=== PATIENT | female | born 1995 | race Caucasian/White ===

== ENCOUNTER 2019-07-01 11:40 | Emergency (ER) | payer MEDICAID ==
[~2019-07-01] VITALS: Ht 167.6 cm; Wt 94.5 kg
[2019-07-01 11:58] VITALS: Ht 167.6 cm; Wt 94.5 kg
[2019-07-01 13:05] LABS: APPEARANCE SL CLDY (CLEAR); COLOR YELLOW (YELLOW)
[2019-07-01 13:06] LABS: BACTERIA MODERATE /hpf (NEGATIVE); BILIRUBIN NEGATIVE (NEGATIVE); GLUCOSE NEGATIVE (NEGATIVE); KETONE NEGATIVE (NEGATIVE); MUCUS <1+ /lpf (NONE SEEN); NITRITE NEGATIVE (NEGATIVE); PROTEIN NEGATIVE (NEGATIVE); RED CELLS - URINE 0-5 /hpf (0-5); SPECIFIC GRAVITY 1.015 (1.005-1.020); SPERMATOZOA RARE /hpf (NONE SEEN); UROBILINOGEN NORMAL (NORMAL); WHITE CELLS - URINE 0-5 /hpf (NEGATIVE)
[2019-07-01 13:30] VITALS: BP 119/52
[2019-07-01 13:42] LABS: BASOPHILS 0.3 % (0-2); EOSINOPHILS 2.2 % (0-7); HEMATOCRIT 37.5 % (36.0-48.0); HEMOGLOBIN 11.8 g/dL (12-16); IMMATURE GRANULOCYTES 0.3 % (0-5); LYMPHOCYTES 30.8 % (15-50); MCH 25.4 pg (26.0-34.0); MCHC 31.5 g/dL (31.0-37.0); MCV 80.6 fL (80.0-100.0); MONOCYTES 10.7 % (2-11); NEUTROPHILS 55.7 % (40-80); PLATELET COUNT 301 10x3/uL (130-400); RBC 4.65 10x6/uL (4.00-5.40); WBC 7.2 10x3/uL (4.8-10.8)
[2019-07-01] MEDS ORDERED: ZOFRAN ODT4 MG/UDTAB PO (13:56)
[2019-07-01] MEDS ORDERED: KEFLEX500 MG PO (13:56)
== END 2019-07-01 14:40 | disposition home or self-care (01) ==
LOC: D.ER 11:40
PROVIDERS: Emergency Medicine
DX: O45.91 Premature separation of placenta, unspecified, first trimester (principal); Z3A.08 8 weeks gestation of pregnancy; O23.41 Unspecified infection of urinary tract in pregnancy, first trimester

== ENCOUNTER 2019-07-15 22:45 | Emergency (ER) | payer MEDICAID ==
[~2019-07-15] VITALS: Ht 167.6 cm; Wt 90.9 kg
[~2019-07-15 22:45] MED LIST: KEFLEX500 MG PO; ZOFRAN ODT4 MG/UDTAB PO
[2019-07-15 22:59] VITALS: Ht 167.6 cm; Wt 90.9 kg
[2019-07-15 23:30] LABS: HCG URINE POSITIVE (NEGATIVE)
[2019-07-16 02:27] VITALS: BP 127/73
== END 2019-07-16 02:28 | disposition home or self-care (01) ==
LOC: D.ER 22:45
PROVIDERS: Family Medicine
DX: O20.9 Hemorrhage in early pregnancy, unspecified (principal); Z3A.08 8 weeks gestation of pregnancy

== ENCOUNTER → 2019-12-02 21:35 | Outpatient (CLI) | payer MEDICAID ==
[2019-07-15 22:59] VITALS: BMI 32.3
== END | disposition home or self-care (01) ==
LOC: D.LDO 21:35
PROVIDERS: ATTEND Obstetrics & Gynecology
DX: O36.8130 Decreased fetal movements, third trimester, not applicable or unspecified (principal); Z3A.28 28 weeks gestation of pregnancy

== ENCOUNTER → 2019-12-14 12:41 | Outpatient (CLI) | payer MEDICAID ==
[2019-07-15 22:59] VITALS: BMI 32.3
== END | disposition home or self-care (01) ==
LOC: D.LDO 12:41
PROVIDERS: ATTEND Obstetrics & Gynecology
DX: O36.8130 Decreased fetal movements, third trimester, not applicable or unspecified (principal); Z3A.30 30 weeks gestation of pregnancy

== ENCOUNTER 2019-12-21 13:20 | Outpatient (CLI) | payer MEDICAID ==
[2019-07-15 22:59] VITALS: BMI 32.3
== END 2019-12-21 13:41 | disposition home or self-care (01) ==
LOC: D.LDO 13:20
PROVIDERS: ATTEND Obstetrics & Gynecology
DX: O36.8120 Decreased fetal movements, second trimester, not applicable or unspecified (principal); Z3A.23 23 weeks gestation of pregnancy

== ENCOUNTER 2019-12-24 16:02 | Outpatient (CLI) | payer MEDICAID ==
[2019-07-15 22:59] VITALS: BMI 32.3
[2019-12-24 18:25] LABS: BILIRUBIN NEGATIVE (NEGATIVE); GLUCOSE NEGATIVE (NEGATIVE); KETONE MODERATE mg/dL (NEGATIVE); NITRITE NEGATIVE (NEGATIVE); SPECIFIC GRAVITY 1.015 (1.005-1.020); UROBILINOGEN NORMAL (NORMAL)
== END 2019-12-24 21:12 | disposition home or self-care (01) ==
LOC: D.LDO 16:02
PROVIDERS: Student in an Organized Health Care Education/Training Program; ATTEND Obstetrics & Gynecology
DX: O36.8130 Decreased fetal movements, third trimester, not applicable or unspecified (principal); Z3A.31 31 weeks gestation of pregnancy

== ENCOUNTER → 2020-01-18 18:33 | Outpatient (CLI) | payer MEDICAID ==
[2019-07-15 22:59] VITALS: BMI 32.3
[2020-01-18 19:41] LABS: BILIRUBIN NEGATIVE (NEGATIVE); GLUCOSE NEGATIVE (NEGATIVE); KETONE MODERATE mg/dL (NEGATIVE); NITRITE NEGATIVE (NEGATIVE); SPECIFIC GRAVITY 1.015 (1.005-1.020); UROBILINOGEN NORMAL (NORMAL)
[2020-01-18 19:42] LABS: BACTERIA MODERATE /hpf (NEGATIVE); EPITHELIAL CELLS 0-5 /hpf (0-5); RED CELLS - URINE OCC /hpf (0-5)
[2020-01-18 19:53] LABS: UDS - AMPHET NEGATIVE QUAL (NEGATIVE); UDS - BARB NEGATIVE QUAL (NEGATIVE); UDS - BENZO NEGATIVE QUAL (NEGATIVE); UDS - COCAINE NEGATIVE QUAL (NEGATIVE); UDS - OPIATE NEGATIVE QUAL (NEGATIVE); UDS - PCP NEGATIVE QUAL (NEGATIVE); UDS - THC NEGATIVE QUAL (NEGATIVE)
[2020-01-18 23:30] LABS: BILIRUBIN NEGATIVE (NEGATIVE); GLUCOSE NEGATIVE (NEGATIVE); KETONE NEGATIVE (NEGATIVE); NITRITE NEGATIVE (NEGATIVE); UROBILINOGEN NORMAL (NORMAL)
[2020-01-18 23:33] LABS: BACTERIA MODERATE /hpf (NEGATIVE); EPITHELIAL CELLS 0-5 /hpf (0-5); RED CELLS - URINE NONE SEEN /hpf (0-5); WHITE CELLS - URINE 0-5 /hpf (NEGATIVE)
== END | disposition home or self-care (01) ==
LOC: D.LDO 18:33
PROVIDERS: ATTEND Obstetrics & Gynecology
DX: O26.893 Other specified pregnancy related conditions, third trimester (principal); Z3A.35 35 weeks gestation of pregnancy; R10.9 Unspecified abdominal pain; M54.9 Dorsalgia, unspecified

== ENCOUNTER 2020-02-01 19:42 | Outpatient (CLI) | payer MEDICAID ==
[2019-07-15 22:59] VITALS: BMI 32.3
== END 2020-02-01 20:40 | disposition home or self-care (01) ==
LOC: D.LDO 19:42
PROVIDERS: ATTEND Student in an Organized Health Care Education/Training Program
DX: O26.899 Other specified pregnancy related conditions, unspecified trimester (principal); Z3A.00 Weeks of gestation of pregnancy not specified; R10.2 Pelvic and perineal pain

== ENCOUNTER 2020-02-04 21:18 | Outpatient (CLI) | payer MEDICAID ==
[2019-07-15 22:59] VITALS: BMI 32.3
[2020-02-04 22:34] LABS: BILIRUBIN NEGATIVE (NEGATIVE); GLUCOSE NEGATIVE (NEGATIVE); KETONE NEGATIVE (NEGATIVE); NITRITE NEGATIVE (NEGATIVE); UROBILINOGEN NORMAL (NORMAL)
[2020-02-04 22:40] LABS: BACTERIA MODERATE /hpf (NEGATIVE); RED CELLS - URINE 0-5 /hpf (0-5)
== END 2020-02-04 23:31 | disposition left against medical advice (07) ==
LOC: D.LDO 21:18
PROVIDERS: ATTEND Student in an Organized Health Care Education/Training Program
DX: O26.899 Other specified pregnancy related conditions, unspecified trimester (principal); Z3A.00 Weeks of gestation of pregnancy not specified; R10.9 Unspecified abdominal pain; M54.9 Dorsalgia, unspecified

== ENCOUNTER 2020-02-15 04:53 | Inpatient (IN) | payer MEDICAID ==
[~2020-02-15] VITALS: Ht 167.6 cm; Wt 110.5 kg
[2020-02-15 05:31] VITALS: BP 128/79; Ht 167.6 cm; Wt 110.5 kg
[2020-02-15 06:18] LABS: HEMATOCRIT 32.7 % (36.0-48.0); HEMOGLOBIN 10.2 g/dL (12-16); MCH 23.7 pg (26.0-34.0); MCHC 31.2 g/dL (31.0-37.0); MCV 75.9 fL (80.0-100.0); MEAN PLATELET VOLUME 9.6 fL (7.4-10.4); RBC 4.31 10x6/uL (4.00-5.40); RDW 14.7 % (11.5-14.5); WBC 10.3 10x3/uL (4.8-10.8)
[2020-02-15 06:27] LABS: UDS - AMPHET NEGATIVE QUAL (NEGATIVE); UDS - BARB NEGATIVE QUAL (NEGATIVE); UDS - BENZO NEGATIVE QUAL (NEGATIVE); UDS - COCAINE NEGATIVE QUAL (NEGATIVE); UDS - OPIATE NEGATIVE QUAL (NEGATIVE); UDS - PCP NEGATIVE QUAL (NEGATIVE); UDS - THC NEGATIVE QUAL (NEGATIVE)
[2020-02-15 19:17] VITALS: BP 130/80
--- NOTE | 2020-02-15 19:30 | NUR ---
VSS. PT PAIN 4/10 TO PERINEAL AREA, IBUPROFEN 600MG PO ADMINISTERED, TUCKS PADS AND DERMAPLAST PROVIDED PER MD ORDERS. FUNDUS IS FIRM, MIDLINE, 2 BELOW, SCANT RUBRA LOCHIA NOTED NO CLOTS SEEN. BED IN LOWEST POSITION, CALL LIGHT IN REACH, SIDE RAILS UP X2.
--- NOTE | 2020-02-15 21:14 | NUR ---
RN TO PT BEDSIDE, PT REQUESTS IV BE REMOVED. RN ADVISED PT THAT IF SHE NEEDED TO HAVE AN IV IN FOR ANY REASON THE IV WOULD HAVE TO BE RESTARTED, PT AGREES. IV REMOVED A THIS TIME, 4X4 AND BANDAIDE APPLIED TO AREA.
--- NOTE | 2020-02-15 22:38 | NUR ---
RN TO PT BEDSIDE, PT SLEEPING AT THIS TIME.
--- NOTE | 2020-02-16 00:29 | NUR ---
RN TO PT ROOM AT 0027, PT SLEEPING AT THIS TIME, TAKEN TO NURSERY FOR MIDNIGHT ASSESSMENTS. NO NEEDS AT THIS TIME.
--- NOTE | 2020-02-16 01:28 | NUR ---
RN TO PT BEDSIDE FOR ROUNDING, AMBIEN 10MG PO, NORCO PO, AND IBUPROFEN 600MG PO GIVEN FOR A PAIN OF 6/10 TO PERINEUM.
--- NOTE | 2020-02-16 03:16 | NUR ---
RN TO PT BEDSIDE AT THIS TIME, PT IS SLEEPING AT THIS TIME, IN CRIB AT BEDSIDE, FOB AT BEDSIDE.
[2020-02-16 04:11] VITALS: BP 109/61
[2020-02-16 06:10] LABS: RAPID PLASMA REAGIN Non Reactive (Non Reactive)
[2020-02-16 07:09] LABS: HEMATOCRIT 26.4 % (36.0-48.0); MCH 23.4 pg (26.0-34.0); MCHC 30.3 g/dL (31.0-37.0); MCV 77.2 fL (80.0-100.0); MEAN PLATELET VOLUME 9.7 fL (7.4-10.4); RDW 15.8 % (11.5-14.5); WBC 11.7 10x3/uL (4.8-10.8)
[2020-02-16 07:16] LABS: PLATELET COUNT 234 10x3/uL (130-400); RBC 3.42 10x6/uL (4.00-5.40)
--- NOTE | 2020-02-16 07:45 | NUR ---
AM ASSESSMENT COMPLETED CHARTED ON FLOWSHEET. PT RATES PAIN AT 2/10 AND UNDERSTANDS PAIN MED IS AVAILABLE JUST CALL NURSE WHEN NEEDED. FUNDUS FIRM AT U/2 WITH LIGHT BLEEDING NOTED TO JEY PAD.SHE DENIES ANY CLOTS WITH VOIDS. BONDING WITH INFANT WITHOUT QUESTIONS OR CONCERNS. SIDE RAILS UP X 2 WITH PHONE AND CALL LIGHT IN REACH.
--- NOTE | 2020-02-16 10:00 | NUR ---
CALLED TO ROOM, PT HAS QUESTIONS ABOUT VISITOR POLICY, STATES HER SIG OTHER HAS LEFT FOR THE DAY AND ASKING IF OK FOR HER MOM TO COME SIT WITH HER THRU THE DAY. ATTEMPTED TO CALL COMMERCIAL REAL ESTATE AGENT TO VERIFY CURRENT RECOMMENDATION BUT UNABLE TO REACH HER AT THIS TIME. EXPLAINED THAT TO PT AND SHE STATES THAT PLANS WITH HER SIG OTHER JOB CHANGED AND HE WOULD BE ABLE TO BE HERE THRU THE DAY. NO OTHER QUESTIONS AT THIS TIME.
[2020-02-16 10:47] LABS: ANISOCYTOSIS OCC; EOSINOPHILS 2 % (0-7); LYMPHOCYTES 33 % (15-50); MONOCYTES 6 % (2-11); NEUTROPHILS 58 % (40-80); PLATELET ESTIMATE NORMAL; SMUDGE CELLS OCC
--- NOTE | 2020-02-16 12:20 | NUR ---
MOTRIN GIVEN REQUESTED FOR PAIN THAT SHE RATES 5/10. NORCO OFFERED BUT SHE REFUSES STATING THAT WILL MAKE HER TO SLEEPY. IN CRIB AT BEDSIDE, CALL LIGHT IN REACH.
--- NOTE | 2020-02-16 13:30 | NUR ---
RATES PAIN AT 0/10, ADDITIONAL JEY PADS AND MESH BRIEFS PLACED IN BATHROOM REQUESTED. NO OTHER NEEDS AT THIS TIME.
--- NOTE | 2020-02-16 16:00 | NUR ---
PT RESTING WITH EYES CLOSED AND RESP EVEN, NO SIGNS OF DISTRESS NOTED, LEFT UNDISTURBED AT THIS TIME. SIG OTHER AT BEDSIDE WITH .
--- NOTE | 2020-02-16 17:45 | NUR ---
DENIES NEEDS AT THIS TIME, RATES PAIN AT 0/10. INFANT IN CRIB AT BEDSIDE, SIG OTHER ALSO PRESENT. CALL LIGHT IN REACH.
--- NOTE | 2020-02-16 20:13 | NUR ---
RN TO PT BEDSIDE FOR ROUNDING, PT STATES PAIN 5/10 TO ABDOMEN AND PERINEUM, PT GIVEN NORCO 5MG PO AND IBUPROFEN 600MG PO AT THIS TIME, FUNDUS FIRM, MIDLINE, 2 BELOW SCANT RUBRA LOCHIA NO CLOTS SEEN. BED IN LOWEST POSITION, IN PT'S ARMS BONDING, FOB OFF UNIT AT THIS TIME. SIDE RAILS UPX2, CALL LIGHT IN REACH.
[2020-02-16 20:14] VITALS: BP 121/74
--- NOTE | 2020-02-16 22:05 | NUR ---
RN TO PT BEDSIDE FOR ROUNDING, PT DENIES ANY NEEDS AT THIS TIME.
--- NOTE | 2020-02-16 23:52 | NUR ---
RN TO PT BEDSIDE AT THIS TIME, PT SITTING UP IN BED, PT DENIES NEEDS AT THIS TIME, BED IN LOWEST POSITION, CALL LIGHT IN REACH, SIDE RAILS UPX2.
--- NOTE | 2020-02-17 02:20 | NUR ---
RN TO PT BEDSIDE, PT STATES PAIN IS 4/10 CRAMPING IN ABDOMEN, IBUPROFEN 600MG PO ADMINISTERED. NO OTHER NEEDS AT HIS TIME.
[2020-02-17 06:10] VITALS: BP 134/83
--- NOTE | 2020-02-17 06:14 | NUR ---
RN TO PT BEDSIDE, PT STATES PAIN IS 0/10. PT STATES ALL NEEDS ARE CURRENTLY MET. BED IN LOWEST POSITION, CALL LIGHT IN REACH, SIDE RAILS UPX2.
--- NOTE | 2020-02-17 07:25 | NUR ---
VS DONE. PT AWAKE AND VERBAL RESPONSES APPRO TO QUESTIONS. UP AND ABOUT IN ROOM AT WILL. DENIES NEEDS. ASSESSMENT COMPLETE.
[2020-02-17 07:31] VITALS: BP 104/52
--- NOTE | 2020-02-17 07:32 | NUR ---
DR MOREJON HERE TO SEE PT- STATES THAT PT MAY DISCHARGE HOME WHEN IS DISCHARGED.
--- NOTE | 2020-02-17 10:00 | NUR ---
UP AND ABOUT IN ROOM- DENIES NEEDS.
--- NOTE | 2020-02-17 12:09 | NUR ---
NO CHANGES IN STATUS. DENIES NEEDS.
[2020-02-17] MEDS ORDERED: HYDROCODON-ACE1 EAC7 PO (13:32)
--- NOTE | 2020-02-17 13:40 | NUR ---
INFANT DISCHARGED FROM NURSERY. PHONED DR MOREJON AND DISCHARGE ORDERS RECEIVED.
--- NOTE | 2020-02-17 13:50 | NUR ---
DISCHARGE INST VERBAL AND WRITTEN GIVEN. SCRIPT X1, PT MED REC AND DRUG DATA INFO GIVEN. DISCHARGE INST VERBAL AND WRITTEN GIVEN. PFW POST INSTRUCTIONS GIVEN. AWHONN POST WARNING SIGNS GIVEN. PT HEALTH SUMMARY GIVEN. PT STATES UNDERSTANDING AND DENIES QUESTIONS.
--- NOTE | 2020-02-17 14:00 | NUR ---
DISCHARGED HOME WITH - TO AUTO VIA W/C.
== END 2020-02-17 14:00 | disposition home or self-care (01) | DRG 807 ==
LOC: D.LD 04:53
PROVIDERS: ADMIT Obstetrics & Gynecology; ATTEND Obstetrics & Gynecology
PROC: 10E0XZZ Delivery of Products of Conception, External Approach (ICD-10-PCS; principal; 2020-02-15)
DX: O99.824 Streptococcus B carrier state complicating childbirth (principal); Z37.0 Single live birth; Z3A.39 39 weeks gestation of pregnancy

== ENCOUNTER 2020-12-15 07:07 | Emergency (ER) | payer BC ==
[~2020-12-15] VITALS: Ht 167.6 cm; Wt 97.7 kg
[~2020-12-15 07:07] MED LIST changes: +HYDROCODON-ACE1 EAC7 PO
[2020-12-15 07:11] VITALS: Ht 167.6 cm; Wt 97.7 kg
[2020-12-15 07:29] LABS: BILIRUBIN NEGATIVE (NEGATIVE); KETONE NEGATIVE (NEGATIVE); NITRITE NEGATIVE (NEGATIVE); UROBILINOGEN NORMAL mg/dL (< 2)
[2020-12-15 07:31] LABS: WHITE CELLS - URINE 0-5 HPF (0-4)
[2020-12-15 07:32] LABS: BACTERIA MODERATE HPF (NONE SEEN); SQUAMOUS EPITHELIAL 0-5 HPF (0-4)
[2020-12-15 07:33] LABS: HCG URINE POSITIVE (NEGATIVE)
[2020-12-15 07:45] LABS: BASOPHILS 0.1 % (0-2); EOSINOPHILS 0.7 % (0-7); HEMATOCRIT 39.5 % (36.0-48.0); HEMOGLOBIN 12.9 g/dL (12-16); IMMATURE GRANULOCYTES 0.2 % (0-5); LYMPHOCYTES 15.7 % (15-50); MCH 26.4 pg (26.0-34.0); MCHC 32.7 g/dL (31.0-37.0); MCV 80.8 fL (80.0-100.0); MEAN PLATELET VOLUME 10.7 fL (7.4-10.4); MONOCYTES 6.2 % (2-11); NEUTROPHIL ABS# 7.34 10x3/uL (1.56-6.13); NEUTROPHILS 77.1 % (40-80); RBC 4.89 10x6/uL (4.00-5.40); RDW 14.6 % (11.5-14.5); WBC 9.5 10x3/uL (4.8-10.8)
[2020-12-15 07:49] LABS: CALC OSMOLALITY 270 mosm/kg (275-300); CARBON DIOXIDE 21.2 mmol/L (21.0-32.0); CHLORIDE - SERUM 102 mmol/L (98-107); CREATININE - SERUM 0.7 mg/dL (0.6-1.3); GLUCOSE 117 mg/dL (74-106); POTASSIUM - SERUM 3.8 mmol/L (3.5-5.1); SODIUM 136 mmol/L (136-145); UREA NITROGEN 8 mg/dL (7-18); eGFR NON AFRICAN AMERICAN > 90 mL/min (90-120)
[2020-12-15 07:57] LABS: PLATELET COUNT 327 10x3/uL (130-400)
[2020-12-15 08:15] LABS: ALBUMIN 3.7 g/dL (3.4-5.0); ALKALINE PHOSPHATASE 76 U/L (30-120); ALT (SGPT) 33 U/L (10-68); BILIRUBIN - TOTAL 0.82 mg/dL (0.2-1.3); HCG - QUANTITATIVE (MATERNAL) 41128 mIU/mL; PROTEIN - SERUM 7.8 g/dL (6.4-8.2)
[2020-12-15] MEDS ORDERED: ZOFRAN ODT4 MG/UDTAB PO (09:03)
[2020-12-15 09:12] VITALS: BP 118/72
== END 2020-12-15 09:13 | disposition home or self-care (01) ==
LOC: D.ER 07:07
PROVIDERS: Emergency Medicine
DX: O26.891 Other specified pregnancy related conditions, first trimester (principal); Z3A.01 Less than 8 weeks gestation of pregnancy; R10.30 Lower abdominal pain, unspecified; R11.0 Nausea